=== PATIENT | male | born 1935 | race Caucasian/White ===

== ENCOUNTER 2018-04-19 07:19 | Inpatient (IN) | payer MEDICARE, OTHER ==
[2018-04-18 17:47] VITALS: BMI 26.6
[~2018-04-19] VITALS: Ht 157.5 cm; Wt 64.8 kg
[2018-04-19] VITALS (27 sets, daily range): BP systolic 120–153; BP diastolic 66–88; PULSE 56–90; RESP 13–26; Ht 157.5 cm; Wt 64.8 kg
--- NOTE | 2018-04-19 05:40 | HPN ---
Date/Time of Note Date/Time of Note DATE: 04/19/18 TIME: 05:40 Interval H&P Admission Note Pt. seen H&P reviewed: No system changes JULISSA ANTONIO MD Apr 19, 2018 05:40
--- NOTE | 2018-04-19 05:42 | OPR ---
Date/Time of Note Date/Time of Note DATE: 04/19/18 TIME: 05:40 Operative Report Procedure Date: Apr 19, 2018 Preoperative Diagnosis Left shoulder rotator cuff tear arthropathy Postoperative Diagnosis 1. Left shoulder secondary glenohumeral arthritis 2. Left shoulder acromioclavicular joint arthritis 3. Left shoulder massive, unrepairable rotator cuff tear Operation/Procedure Performed 1. Left reverse total shoulder arthroplasty 2. Left open distal clavicle excision 3. Left shoulder PRP injection Surgeon see signature line [employer] Thomas Becerril PA-C Anesthesia Type: general Anesthesiologist: DESTINY DUMONT Estimated Blood Loss: 100 - 150 ml's Transfusion none Specimen None Grafts/Implants See op note Complications none Pt Condition Post Procedure: stable Disposition: PACU Procedure Description SETTER OUT SURGEON: Thomas Becerril PA-C was asked to be present for this case at my request. Assistance was necessary as a result of the highly technical nature of this operation. When performing an open total shoulder replacement, it is critical to have a trained patient assistant who is an expert in handling the extremity and assisting the surgeon in tasks such as manipulation of the arm, protection of the neurovascular structures and positioning the implants. This assistance cannot be performed by a fuel verification technician, as it is considered an integral part of the procedure and the patient assistant should be compensated for their time. PROCEDURE IN DETAIL: Following the administration of general anesthesia supplemented with a peripheral nerve block for postoperative pain control, the patient was examined under anesthesia. The antecubital fossa was then prepped and 60 cc of blood were aspirated. The blood was then subsequently given to the congressional representative from the company to prepare the PRP solution. Examination of the left shoulder revealed very significant stiffness including a forward flexion of about 90 degrees abduction 75 degrees maximal external rotation 65 degrees with severe crepitus. There was anteroposterior escape of the humeral head, also. The patient was then placed in the beach chair position. Sterile prep and drape was then undertaken. An extended deltopectoral incision was then carried through the interval exposing the conjoined tendon and retracting it medially. The superior aspect of the joint was then evaluated. Significant osteophytes were noted in the acromioclavicular joint. The acromioclavicular joint capsule was then entered and the distal clavicle skeletonized for a distance of 10 mm. Severe arthritic changes were noted. An osteotome was then used to resect 10 mm of the distal clavicle. Good decompression was confirmed. The AC joint was irrigated and closed using a #2 interrupted suture. The subscapularis was noted to be partially disrupted superiorly. Severe arthritic changes were noted with very large peripheral osteophytes. The superior rotator cuff was torn and retracted. The biceps tendon was chronically torn and retracted. The intra-articular portion was resected. A humeral head osteotomy was then created in the appropriate degree of version and inclination. The humerus was retracted and the glenoid was exposed. Peripheral osteophytes were removed and a complete capsulectomy performed. The central canal of the glenoid was then entered and prepared for a standard Depuy baseplate. A standard Depuy baseplate was then applied with four peripheral screws and solid fixation. A 38 mm glenosphere was then applied, with solid fixation. The humerus was then reamed and prepared for a 12 mm humeral component with a standard metaphyseal component with a 9 mm liner. The humeral canal was irrigated and the PRP solution was implanted within the humeral canal. The actual components were implanted with solid fixation. The arm was taken through full range of motion with no evident instability. The joint was then thoroughly irrigated, the deep tissues were approximated using #1 suture followed by closure of the deep layer using 2-0 Monocryl. The skin was closed using 4-0 Monocryl suture, and a Prenio dressing. An Ultrasling was then applied. The patient was awakened and transported to the recovery room in stable condition. Estimated blood loss for this procedure was 150 cc. Radiographs will be obtained in the recovery room. JULISSA ANTONIO MD Apr 19, 2018 05:42
--- NOTE | 2018-04-19 05:49 | PDOCDIS ---
Discharge Instructions DIAGNOSIS Discharge Diagnosis Rotator cuff tear arthropathy CONDITION [id number] Patient Condition: [id number] Good HOME CARE INSTRUCTIONS: [id number] Diet Instructions: [id number] Regular ACTIVITY: [id number] Activity Restrictions: [id number] Rest between Activity Keep Limb Elevated [id number] Bathing Restrictions: [id number] Shower FOLLOW UP/APPOINTMENTS Follow-up Plan 2 weeks in the office SCHOOL/WORK RELEASE May return to School/Work with: With Restrictions School/Work Release Comment: 5 pound tabletop usage for 6 weeks JULISSA ANTONIO MD Apr 19, 2018 05:49
[~2018-04-19 07:19] MED LIST: BUPIVACAINE 0.5% (SDV) 30 ML, morphine SULFATE (PF) 8 MG, EPINEPHrine 0.3 MG, KETOROLAC... IRR SCH; CEFAZOLIN 1 GM INJ ONE; CEFAZOLIN 2 GM/50 ML (PMX) 50 ML IVPB ONE; DESFLURANE 15 MIN ONE; DEXAMETHASONE 1 MG TAB PO ONE; GABAPENTIN 300 MG CAP PO ONE; ROCURONIUM 50 MG INJ ONE; SOFO1TAB PO; SUCCINYLCHOLINE CHLORIDE 100 MG/5 ML SYG IV ONE; TRANEXAMIC ACID 1GM/100ML(PMX) 100 ML IVPB ONE
[2018-04-19] MEDS ORDERED: MIDAZOLAM 1 MG/ML 2 ML INJ ONE (09:29)
[2018-04-19] MEDS ORDERED: POLYMYXIN/BACITRACIN 1L IRRIG ONE (09:57)
[2018-04-19] MEDS ORDERED: BUPIVACAINE 0.5%/EPI (SDV) 30 ML INJ ONE (09:57)
[2018-04-19] MEDS ORDERED: THROMBIN 5000 UNIT VIAL ONE (09:57)
[2018-04-19] MEDS ORDERED: CA CHLORIDE 10% 10 ML SYRINGE ONE (09:57)
--- NOTE | 2018-04-19 10:26 | PREAC ---
Date/Time of Note Date/Time of Note DATE: 04/19/18 TIME: 10:25 Anesthesia Eval and Record Evaluation Time Pre-Procedure Interview DATE: 04/19/18 TIME: 10:25 Age 82 Sex male NPO: 8 hrs Preoperative diagnosis left shoulder arthritis Planned procedure reverse total shoulder Past Medical History Past Medical History: Includes Hepatic: Other (hep c ) Surgery & Anesthesia Issues No known issue Meds Anticoagulation: No Beta Leonel within 24 hr: No Reason Beta Leonel not given: Pt. not on B-Leonel Reported Medications Sofosbuvir/Velpatasvir (Epclusa 400 mg-100 mg Tablet) 1 Each Tablet, 1 EACH PO DAILY, TAB 04/18/18 Current Medications Bupivacaine HCl/ Morphine Sulfate/ Epinephrine/ Ketorolac Tromethamine/ Clonidine/Sodium Chloride/ Vancomycin HCl INTRA-OP IRR ; Start 04/19/18 at 06:00; Stop 04/19/18 at 15:00 Meds reviewed: Yes Allergies Coded Allergies: No Known Allergy (Unverified , 04/19/18) Allergies Reviewed: Yes Labs/Studies Labs Reviewed: Reviewed by anesthesiologist test: N/A Pre-procedure Exam Last vitals Vital Signs Date Temp Pulse Resp B/P (MAP) Pulse Ox O2 O2 Flow FiO2 Time Delivery Rate 04/19/18 97.6 56 16 145/67 96 Room Air 08:36 (93) Airway: Adequate mouth opening, Adequate thyromental dist Mallampati: Mallampati IV Teeth: Normal Lung: Normal Heart: Normal ASA Physical Status ASA physical status: 2 Emergency: None Pre-operative Attestations Prior to commencing anesthesia and surgery, the patient was re-evaluated, there was verification of: *The patient's identity *The results of appropriate recent lab work and preoperative vital signs *The above evaluation not changing prior to induction *Anesthetic plan, risk benefits, alternative and complications discussed with patient/family; questions answered; patient/family understands, accepts and wishes to proceed. REY CERDA DO Apr 19, 2018 10:26
[2018-04-19] MEDS ORDERED: DEXAMETHASONE 4 MG/ML 5 ML INJ ONE (10:58)
[2018-04-19] MEDS ORDERED: ONDANSETRON 4 MG INJ ONE (10:58)
[2018-04-19] MEDS ORDERED: LIDOCAINE 2% (SDV) 5 ML INJ ONE (11:15)
[2018-04-19] MEDS ORDERED: ETOMIDATE 20 MG INJ ONE (11:15)
[2018-04-19] MEDS: CEFAZOLIN 1 GM/50 ML (PMX) 50 ML IVPB SCH ×2 (12:00→20:21)
[2018-04-19] MEDS ORDERED: ZOLPIDEM 5 MG TAB PO PRN (12:00)
[2018-04-19] MEDS: ACETAMINOPHEN 500 MG TAB PO SCH ×4 (12:00→23:56)
[2018-04-19] MEDS ORDERED: KETOROLAC 15 MG INJ IV PRN (12:00)
[2018-04-19] MEDS ORDERED: oxyCODONE 5 MG TAB PO PRN ×3 (12:00)
[2018-04-19] MEDS ORDERED: TRANEXAMIC ACID 1GM/100ML(PMX) 100 ML IVPB ONE (12:00)
[2018-04-19] MEDS ORDERED: NACL 0.9% 3 ML SYG IV SCH (12:00)
[2018-04-19] MEDS ORDERED: ONDANSETRON 4 MG INJ IV PRN (12:00)
[2018-04-19] MEDS ORDERED: DIPHENHYDRAMINE 50 MG INJ IV PRN (12:00)
[2018-04-19] MEDS ORDERED: LOPERAMIDE 2 MG CAP PO PRN (12:00)
[2018-04-19] MEDS: DEXAMETHASONE 2 MG TAB PO SCH ×4 (12:00→23:56)
[2018-04-19] MEDS ORDERED: MAGNESIUM HYDROXIDE 30ML CUP PO PRN (12:00)
[2018-04-19] MEDS ORDERED: HYDROmorphONE 1 MG/ML SYG IV PRN (12:00)
[2018-04-19] MEDS ORDERED: SUGAMMADEX SODIUM 200 MG/2 ML VIAL IV ONE (12:17)
--- NOTE | 2018-04-19 12:38 | PAC ---
Date/Time of Note Date/Time of Note DATE: 04/19/18 TIME: 12:37 Post-Anesthesia Notes Post-Anesthesia Note Last documented vital signs Vital Signs Date Temp Pulse Resp B/P (MAP) Pulse Ox O2 O2 Flow FiO2 Time Delivery Rate 04/19/18 98 70 16 140/75 96 Room Air 1235 Activity: WNL Respiratory function: WNL Cardiovascular function: WNL Mental status: Baseline Pain reasonably controlled: Yes Hydration appropriate: Yes Nausea/Vomiting absent: Yes REY CERDA DO Apr 19, 2018 12:37
[2018-04-19] MEDS ORDERED: HYDROmorphONE 1 MG/5 ML IV SYRINGE IV PRN ×2 (13:00)
[2018-04-19] MEDS: SENNA/DOCUSATE NA (8.6MG/50MG) TAB PO SCH (20:24)
[2018-04-19] MEDS ORDERED: GABAPENTIN 300 MG CAP PO SCH (21:00)
[2018-04-20 00:10] VITALS: BP 111/63; PULSE 82; RESP 18
[2018-04-20] MEDS: CEFAZOLIN 1 GM/50 ML (PMX) 50 ML IVPB SCH (04:08)
--- NOTE | 2018-04-20 04:35 | PN ---
Date/Time of Note Date/Time of Note DATE: 04/20/18 TIME: 04:34 Subjective Awake and alert with no complaints this morning. Objective Vitals Vital Signs Date Temp Pulse Resp B/P (MAP) Pulse Ox O2 O2 Flow FiO2 Time Delivery Rate 04/20/18 97.3 82 18 111/63 96 Nasal 2.0 00:10 (79) Cannula Intake and Output 04/19/18 04/19/18 04/20/18 1515:00 23:00 07:00 IntakeIntake Total 2000 ml 240 ml OutputOutput Total 50 ml 1000 ml BalanceBalance 1950 ml -760 ml Wound clean and dry. Neurologically intact. No signs of DVT. Medications Medications Current Medications Miscellaneous Information 1 each DAILY PO ; Start 04/20/18 at 09:00; Status UNV Senna/Docusate Sodium (Senokot-S) 1 tab BID PO Last administered on 04/19/18at 20:24; Admin Dose 1 TAB; Start 04/19/18 at 21:00 Simethicone (Mylicon) 80 mg TID PRN PO .GAS; Start 04/19/18 at 12:00 Magnesium Hydroxide (Milk Of Mag) 30 ml BID PRN PO .CONSTIPATION; Start 04/19/18 at 12:00 Loperamide HCl (Imodium Cap) 2 mg Q6H PRN PO .DIARRHEA; Start 04/19/18 at 12:00 Dexamethasone (Decadron) 2 mg Q6 PO Last administered on 04/19/18at 23:56; Admin Dose 2 MG; Start 04/19/18 at 12:00; Stop 04/20/18 at 06:01 Gabapentin (Neurontin) 300 mg HS PO Last administered on 04/19/18at 20:24; Admin Dose 300 MG; Start 04/19/18 at 21:00 Acetaminophen (Tylenol Tab) 500 mg Q6 PO Last administered on 04/19/18at 23:56; Admin Dose 500 MG; Start 04/19/18 at 12:00 Oxycodone HCl (Roxicodone) 15 mg Q4H PRN PO .PAIN; Start 04/19/18 at 12:00 Oxycodone HCl (Roxicodone) 10 mg Q4H PRN PO .PAIN; Start 04/19/18 at 12:00 Oxycodone HCl (Roxicodone) 5 mg Q4H PRN PO .PAIN; Start 04/19/18 at 12:00 Hydromorphone HCl (Dilaudid) 1 mg Q4H PRN IV .BREAKTHROUGH PAIN; Start 04/19/18 at 12:00 Ketorolac Tromethamine (Toradol) 15 mg Q6H PRN IV .PAIN; Start 04/19/18 at 12:00 Ondansetron HCl (Zofran Inj) 4 mg Q6H PRN IV NAUSEA/VOMITING Last administered on 04/19/18at 18:25; Admin Dose 4 MG; Start 04/19/18 at 12:00 Diphenhydramine HCl (Benadryl) 25 mg Q6H PRN IV .PRURITUS; Start 04/19/18 at 12:00 Zolpidem Tartrate (Ambien) 10 mg HS PRN PO .INSOMNIA; Start 04/19/18 at 12:00 IV Flush (NS 3 ml) 3 ml per protocol IV ; Start 04/19/18 at 12:00 Hydromorphone HCl (Dilaudid) 0.2 mg PACU PRN IV MILD PAIN 1-3; Start 04/19/18 at 13:00 Hydromorphone HCl (Dilaudid) 0.4 mg PACU PRN IV MOD PAIN 4-6; Start 04/19/18 at 13:00 VTE Prophylaxis Risk score (from Ns)>0 risk: 9 SCD applied (from Nsg): Yes Lines/Catheters IV Catheter Type: Saline Lock Ibarra in Place: No Assessment/Plan Assessment/Plan Assessment: Status post total shoulder Plan: Begin PT this morning discharge after JULISSA ANTONIO MD Apr 20, 2018 04:35
--- NOTE | 2018-04-20 04:35 | DS ---
Date/Time of Note Date/Time of Note DATE: 04/20/18 TIME: 04:35 Discharge Summary Admission/Discharge Info Admit Date/Time Apr 19, 2018 at 07:19 Discharge Date/Time 04/20/2018 Discharge Diagnosis Rotator cuff tear arthropathy Patient Condition: Good Hospital Course Admitted underwent uncomplicated procedure. Postop day 1 discharge after PT Home Meds Reported Medications Sofosbuvir/Velpatasvir (Epclusa 400 mg-100 mg Tablet) 1 Each Tablet, 1 EACH PO DAILY, TAB 04/18/18 Follow-up Plan 2 weeks in the office Primary Care Provider Not On Staff Doctor JULISSA ANTONIO MD Apr 20, 2018 04:35
[2018-04-20] MEDS: ACETAMINOPHEN 500 MG TAB PO SCH ×2 (05:08→12:03)
[2018-04-20] MEDS: DEXAMETHASONE 2 MG TAB PO SCH (05:08)
[2018-04-20 07:59] VITALS: BP 124/66; PULSE 82; RESP 18
[2018-04-20] MEDS: SENNA/DOCUSATE NA (8.6MG/50MG) TAB PO SCH (08:47)
[2018-04-20] MEDS ORDERED: NON-FORMULARY/PATIENT OWN MED (Sofosbuvir/Velpatasvir (Epclusa 400 mg-100 mg Tablet) 1 EAC PO SCH (09:00)
== END 2018-04-20 13:45 | disposition home or self-care (01) | DRG 483 ==
LOC: REC 07:19 → MS1 13:50
PROVIDERS: ADMIT Orthopaedic Surgery; ATTEND Orthopaedic Surgery
PROC: 0RRK00Z Replacement of Left Shoulder Joint with Reverse Ball and Socket Synthetic Substitute, Open Approach (ICD-10-PCS; principal; 2018-04-19 10:00)
DX: M19.012 Primary osteoarthritis, left shoulder (principal); M75.102 Unspecified rotator cuff tear or rupture of left shoulder, not specified as traumatic; B18.2 Chronic viral hepatitis C
CPT/HCPCS: 73030; 86999; 88304; 88311; 97167; C1776; J0171; J0690; J0735; J1100; J1885; J2250; J2274; J2405; J3010; J3370